=== PATIENT | female | born 1965 | race Caucasian/White ===

== ENCOUNTER 2018-10-19 13:28 | Emergency (ER) | payer OTHER ==
[2018-10-19] MEDS ORDERED: Acetaminophen TAB* 325 MG PO ONE (15:53)
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
[2018-10-19 17:42] VITALS: BP 134/86
== END 2018-10-19 17:41 | disposition home or self-care (01) ==
LOC: ED 13:28
DX: S16.1XXA Strain of muscle, fascia and tendon at neck level, initial encounter (principal); S39.012A Strain of muscle, fascia and tendon of lower back, initial encounter; S06.0X9A Concussion with loss of consciousness of unspecified duration, initial encounter; V43.62XA Car passenger injured in collision with other type car in traffic accident, initial encounter; Y92.410 Unspecified street and highway as the place of occurrence of the external cause; M50.323 Other cervical disc degeneration at C6-C7 level; M47.812 Spondylosis without myelopathy or radiculopathy, cervical region; G43.909 Migraine, unspecified, not intractable, without status migrainosus; F41.9 Anxiety disorder, unspecified
CPT/HCPCS: 70450; 72125; 99282; A9270-GY